=== PATIENT | female | born 1995 | race Caucasian/White ===

== ENCOUNTER 2017-07-02 14:47 | Inpatient (IN) | payer MEDICAID ==
[~2017-07-02] VITALS: Ht 157.5 cm; Wt 60.8 kg
[2017-07-02 15:54] LABS: microscopic required? NO
[2017-07-02 16:07] LABS: BASOPHIL % 0.4 % (0-2); PLATELET COUNT 295 x10^3mcL (130-400); RED CELL DISTRIBUTION WIDTH 14.1 % (11.5-14.5)
[2017-07-02 16:14] LABS: CALCIUM 9.4 mg/dL (8.5-10.1); CARBON DIOXIDE 25.8 mmol/L (21-32); CHLORIDE SERUM 103 mmol/L (98-107); CREATININE SERUM 0.6 mg/dL (0.6-1.0); GFR1 > 60 mL/min; GLUCOSE SERUM 92 mg/dL (74-106); POTASSIUM SERUM 3.8 mmol/L (3.5-5.1); SODIUM SERUM 135 mmol/L (136-145)
[2017-07-02 16:14] LABS: urine erythrocyte NEGATIVE (NEGATIVE)
[2017-07-02 16:19] LABS: ALBUMIN 4.1 g/dL (3.4-5.0); ALKALINE PHOSPHATASE 88 U/L (46-116); ALT/SGPT 67 U/L (14-59); AST/SGOT 56 U/L (15-37); BILIRUBIN TOTAL 0.2 mg/dL (0.20-1.00); LIPASE 84 IU/L (73-393); TOTAL PROTEIN, SERUM 7.7 g/dL (6.4-8.2)
[2017-07-02 18:03] LABS: CHOLESTEROL/HDL RATIO 2.2
[2017-07-02 18:10] LABS: T3 TOTAL 1.11 ng/mL
[2017-07-02 18:21] LABS: AMPHETAMINE QUAL UR NONE DETECTED (NEG <=1000)
[2017-07-02 18:26] LABS: FREE T4 1.01 ng/dL (0.76-1.46); FREE THYROXINE INDEX 2.6 ug/dL (1.4-4.5); T4(THYROXINE) 7.4 ug/dL (4.7-13.3)
[2017-07-02 18:34] VITALS: BP 129/68
[2017-07-02 18:45] VITALS: Ht 157.5 cm; Wt 60.8 kg
[2017-07-02 20:56] VITALS: BP 135/72
[2017-07-03 05:48] VITALS: BP 110/68
[2017-07-03 06:03] LABS: BASOPHIL % 0.5 % (0-2); PLATELET COUNT 267 x10^3mcL (130-400); RED CELL DISTRIBUTION WIDTH 13.9 % (11.5-14.5)
[2017-07-03 06:37] LABS: CALCIUM 8.2 mg/dL (8.5-10.1); CARBON DIOXIDE 24.3 mmol/L (21-32); CHLORIDE SERUM 107 mmol/L (98-107); CREATININE SERUM 0.6 mg/dL (0.6-1.0); GFR1 > 60 mL/min; GLUCOSE SERUM 83 mg/dL (74-106); SODIUM SERUM 137 mmol/L (136-145)
[2017-07-03 08:54] VITALS: BP 115/71
[2017-07-03 09:49] VITALS: BP 115/71
== END 2017-07-03 14:32 | disposition home or self-care (01) | DRG 775 ==
LOC: ED 14:47 → DU 17:27
PROVIDERS: Emergency Medicine; Family Medicine
DX: F12.188 Cannabis abuse with other cannabis-induced disorder (principal); F10.20 Alcohol dependence, uncomplicated; N17.0 Acute kidney failure with tubular necrosis; E87.1 Hypo-osmolality and hyponatremia; E86.0 Dehydration; Y90.9 Presence of alcohol in blood, level not specified
CPT/HCPCS: 83880; 84439; J1885; J2405; J2543; J7030; Q0092